=== PATIENT | female | born 1965 | race Caucasian/White ===

== ENCOUNTER 2024-04-05 18:42 | Emergency (ER) | payer BC ==
[2024-04-05 18:55] VITALS: RESP 16; BMI 59.5
[2024-04-05 20:04] LABS: HEMOGLOBIN 14.8 G/dL (10.7-15.3); MCH 26.7 pg (25.7-33.7); MCHC 32.8 g/dl (32.0-36.0); MEAN CELL VOLUME 81.6 fl (80-96); MEAN PLT VOLUME 8.3 fl (7.5-11.1); PLATELET COUNT 187.7 10^3/uL (134-434); RBC 5.52 10^6/uL (3.60-5.2); RDW 14.3 % (11.6-15.6); WHITE BLOOD COUNT 2.6 10^3/uL (4.0-10.8)
[2024-04-05 20:29] LABS: ALBUMIN 4.6 g/dl (3.4-5.0); BILIRUBIN,TOTAL 0.5 mg/dl (0.2-1); CREATININE 0.7 mg/dl (0.6-1.3); POTASSIUM 3.9 mmol/L (3.5-5.1); TOT PROT 7.1 g/dl (6.4-8.2)
[2024-04-05 20:40] LABS: PLATELET ESTIMATE ADEQUATE
[2024-04-05 21:10] VITALS: BP 176/102; PULSE 88; TEMP 99.4
== END 2024-04-05 21:38 | disposition home or self-care (01) ==
LOC: FER 18:42
DX: U07.1 COVID-19 (principal); R53.83 Other fatigue; M79.10 Myalgia, unspecified site; R50.9 Fever, unspecified; R07.89 Other chest pain; R09.89 Other specified symptoms and signs involving the circulatory and respiratory systems
CPT/HCPCS: 36415; 80053; 84484; 85027; 93005; 99284-25